=== PATIENT | female | born 1995 | race Caucasian/White ===

== ENCOUNTER 2021-10-05 22:58 | Emergency (ER) | payer OTHER ==
[2021-10-06 03:21] LABS: HEMOGLOBIN 9.7 gm/dl (12.3-15.3); RED BLOOD COUNT 4.18 M/UL (4.00-5.10); WHITE BLOOD COUNT 12.5 K/UL (4.5-11.0)
[2021-10-06 03:40] LABS: BUN/CREATININE RATIO 8 (0-10)
[2021-10-06] MEDS ORDERED: OMNICEF 300 MG300 MG PO (03:53)
== END 2021-10-06 04:57 | disposition home or self-care (01) ==
LOC: ER1 22:58
PROVIDERS: Physician Assistant
DX: O26.93 Pregnancy related conditions, unspecified, third trimester (principal); M54.50 Low back pain, unspecified; O99.333 Smoking (tobacco) complicating pregnancy, third trimester; F17.210 Nicotine dependence, cigarettes, uncomplicated; Z3A.30 30 weeks gestation of pregnancy
CPT/HCPCS: 80053; 81001; 85025; 85652; 86140; 87040; 87086; 99283

== ENCOUNTER 2021-10-16 20:02 | Outpatient (CLI) | payer OTHER ==
[~2021-10-16 20:02] MED LIST: OMNICEF 300 MG300 MG PO
== END 2021-10-16 21:49 | disposition home or self-care (01) ==
LOC: GENOP 20:02
DX: O99.891 Other specified diseases and conditions complicating pregnancy (principal); R10.9 Unspecified abdominal pain; Z3A.32 32 weeks gestation of pregnancy
CPT/HCPCS: G0463

== ENCOUNTER 2021-11-01 18:36 | Emergency (ER) | payer OTHER ==
[2021-11-02] MEDS ORDERED: CEPHALEXIN500 MG PO (01:19)
== END 2021-11-02 01:33 | disposition home or self-care (01) ==
LOC: ER1 18:36
DX: O99.891 Other specified diseases and conditions complicating pregnancy (principal); M79.651 Pain in right thigh; R22.41 Localized swelling, mass and lump, right lower limb; O99.713 Diseases of the skin and subcutaneous tissue complicating pregnancy, third trimester; L53.9 Erythematous condition, unspecified; O99.333 Smoking (tobacco) complicating pregnancy, third trimester; F17.290 Nicotine dependence, other tobacco product, uncomplicated; Z3A.35 35 weeks gestation of pregnancy; Z79.899 Other long term (current) drug therapy
CPT/HCPCS: 99283

== ENCOUNTER 2021-11-06 04:13 | Outpatient (CLI) | payer OTHER ==
[~2021-11-06 04:13] MED LIST changes: +CEPHALEXIN500 MG PO
== END 2021-11-06 07:15 | disposition home or self-care (01) ==
LOC: GENOP 04:13
PROVIDERS: Obstetrics & Gynecology
DX: O99.891 Other specified diseases and conditions complicating pregnancy (principal); R10.2 Pelvic and perineal pain; M54.9 Dorsalgia, unspecified; Z3A.35 35 weeks gestation of pregnancy
CPT/HCPCS: 80307; 81001; G0463

== ENCOUNTER 2021-11-21 01:02 | Outpatient (CLI) | payer OTHER | END 2021-11-21 02:04 | disposition home or self-care (01) | LOC: GENOP 01:02 | PROVIDERS: Obstetrics & Gynecology | DX: O99.891 Other specified diseases and conditions complicating pregnancy (principal); M79.605 Pain in left leg; M79.604 Pain in right leg; M54.9 Dorsalgia, unspecified; Z3A.37 37 weeks gestation of pregnancy | CPT/HCPCS: 80307; 81001; G0463 ==